=== PATIENT | female | born 1995 | race Caucasian/White ===

== ENCOUNTER 2019-11-10 01:43 | Emergency (ER) | payer OTHER ==
[~2019-11-10] VITALS: Ht 157.5 cm; Wt 59.0 kg
[2019-11-10] MEDS ORDERED: normal saline 1000ML IV soln IVB ONE (02:10)
[2019-11-10] MEDS ORDERED: ondansetron/PF 4mg/2ml inj IV ONE (02:10)
[2019-11-10] MEDS ORDERED: ketorolac tromethamine 15mg/ml inj. IV ONE (02:10)
[2019-11-10] MEDS: morphine 4 MG/ML inj SYRINge IV PRN ×2 (02:27→04:26)
[2019-11-10 02:32] LABS: BASOPHILS # (AUTO) 0.1 X10'3 (0-0.2); BASOPHILS % (AUTO) 0.7 % (0-1); EOSINOPHILS # (AUTO) 0.1 X10'3 (0-0.9); EOSINOPHILS % (AUTO) 1.5 % (0-6); HCG SERUM QL NEGATIVE; HEMATOCRIT 36.1 % (35.0-45.0); HEMOGLOBIN 12.4 g/dl (12.0-16.0); LYMPHOCYTES # (AUTO) 4.4 X10'3 (1.1-4.8); LYMPHOCYTES % (AUTO) 47.1 % (21-51); MEAN CORPUSCULAR HEMOGLOBIN 28.7 PG (27.0-31.0); MEAN CORPUSCULAR HGB CONC 34.2 g/dL (33.0-36.5); MEAN CORPUSCULAR VOLUME 83.9 FL (78-98); MEAN PLATELET VOLUME 8.2 FL (7.4-10.4); MONOCYTES # (AUTO) 0.9 X10'3 (0-0.9); MONOCYTES % (AUTO) 9.4 % (2-12); NEUTROPHILS # (AUTO) 3.8 X10'3 (1.8-7.7); NEUTROPHILS % (AUTO) 41.3 % (42-75); PLATELET COUNT 286 X10'3 (140-440); RED BLOOD COUNT 4.31 X10'6 (4.20-5.60); RED CELL DISTRIBUTION WIDTH 13.4 % (11.5-14.5); WHITE BLOOD COUNT 9.3 X10'3 (4.5-11.0)
[2019-11-10 02:34] LABS: ALANINE AMINOTRANSFERASE 25 U/L (12-78); ALBUMIN 3.9 G/DL (3.4-5.0); ALBUMIN/GLOBULIN RATIO 1.3 (1.1-1.5); ALKALINE PHOSPHATASE 36 IU/L (46-116); ANION GAP 14 (8-16); ASPARTATE AMINO TRANSFERASE 14 U/L (10-37); BILIRUBIN,TOTAL 0.6 MG/DL (0.1-1.0); BLOOD UREA NITROGEN 10 MG/DL (7-18); BUN/CREATININE RATIO 11.8 (6.6-38.0); CALCIUM 8.1 MG/DL (8.5-10.1); CHLORIDE 107 MMOL/L (99-107); CREATININE 0.85 MG/DL (0.40-0.90); GLUCOSE 132 MG/DL (70-104); LIPASE 61 U/L (73-393); SODIUM 141 MMOL/L (135-145); TOTAL CARBON DIOXIDE 19.6 MMOL/L (24-32); TOTAL PROTEIN 6.8 G/DL (6.4-8.2); eGFR 84 ML/MIN
[2019-11-10 02:36] LABS: POTASSIUM 2.8 MMOL/L (3.5-5.1)
--- NOTE | 2019-11-10 03:26 | NUR ---
PATIENT IN BED COVERS ON EYES CLOSED RR EVEN UN LABORED NO OBSERVABLE S/S OF ACUTE STRESS/PAIN AT THIS TIME WILL CONTINUE TO MONITOR
--- NOTE | 2019-11-10 03:43 | NUR ---
US AT BEDSIDE, PATIENT VERBALIZED THE PAIN "TOLERABLE."
[2019-11-10 04:02] LABS: CLARITY,URINE CLEAR (Clear); COLOR,URINE YELLOW (Yellow); GLUCOSE, URINE NEGATIVE (Neg); KETONES,URINE NEGATIVE (Neg); LEUKOCYTE ESTERASE ,URINE NEGATIVE (Neg); NITRITES, URINE NEGATIVE (Neg); OCCULT BLOOD,URINE NEGATIVE (Neg); PROTEIN,URINE NEGATIVE (Neg); UROBILINOGEN,URINE 0.2 E.U/dL (0.2-1.0)
[2019-11-10 04:06] LABS: UA COLLECTION TYPE CLN CATCH MIDSTREAM
[2019-11-10 04:50] VITALS: BP 108/48
== END 2019-11-10 04:54 | disposition home or self-care (01) ==
LOC: ER 01:45
DX: N83.02 Follicular cyst of left ovary (principal); R19.7 Diarrhea, unspecified
CPT/HCPCS: 36415; 76830; 76856; 80053; 81003; 83690; 84703; 85025; 96361; 96374; 96375; 96376; 99284; J1885; J2270; J2405; J7030

== ENCOUNTER 2021-10-05 13:04 | Emergency (ER) | payer MEDICAID ==
[~2021-10-05] VITALS: Ht 157.5 cm; Wt 54.5 kg
[2021-10-05 13:30] VITALS: BP 124/74
[2021-10-05] MEDS ORDERED: bisacodyl 10mg suppository rectal RC STA (15:19)
[2021-10-05] MEDS ORDERED: magnesium citrate 296ml oral solution PO ONE (15:20)
[2021-10-05] MEDS ORDERED: mineral oil 133ml enema RC PRN (15:20)
[2021-10-05] MEDS ORDERED: BISA10SU60 RC (15:21)
[2021-10-05] MEDS ORDERED: NA P133E4 RC (15:21)
== END 2021-10-05 15:42 | disposition home or self-care (01) ==
LOC: ER 13:04
DX: K59.00 Constipation, unspecified (principal); R14.0 Abdominal distension (gaseous); Z79.899 Other long term (current) drug therapy
CPT/HCPCS: 74018; 99284